=== PATIENT | female | born 1975 | race Caucasian/White ===

== ENCOUNTER 2024-04-07 20:22 | Emergency (ER) | payer MEDICARE, MEDICAID, SELFPAY ==
[2024-04-07 20:32] VITALS: BP 143/54; PULSE 68; RESP 18; TEMP 36.3; O2SAT 100; BMI 51.8
[2024-04-08 00:10] VITALS: BP 122/89; PULSE 63; RESP 18; TEMP 36.8; O2SAT 100
--- NOTE | 2024-04-08 00:30 | ED.BACK ---
HPI - Back Pain/Injury General Chief Complaint: Back Pain/Injury Stated Complaint: back pain, no injury Time Seen by Provider: 04/07/24 22:56 Source: patient and family Limitations: no limitations and language barrier History of Present Illness ED Provider: Lilly Colindres PA-C HPI Narrative: 48-year-old female with a history of morbid obesity and chronic pain who attends pain management, presents with back pain x1 week. Pain across entire lower back, is nonradiating to either extremity. Denies paresthesia, weakness of lower extremities, urinary retention or bowel incontinence. Patient was not performed new exercise, heavy lifting or other activity. There has been no trauma. Related Data Previous Rx's ?Medication ?Instructions ?Recorded methylprednisolone 4 mg tablets in 4 mg PO DAILY #1 ea 04/08/24 a dose pack (Medrol (Tank)) Allergies Allergy/AdvReac Type Severity Reaction Status Date / Time morphine Allergy Unknown Anaphylaxis Verified 04/07/24 20:36 Review of Systems Review of Systems: Yes all other systems are reviewed and are negative Constitutional: Constitutional: Denies fatigue and Denies fever(s) Cardiovascular: Cardiovascular: Denies chest pain and Denies dyspnea Respiratory: Respiratory: Denies cough and Denies dyspnea Gastrointestinal: Gastrointestinal: Denies abdominal pain Musculoskeletal: Musculoskeletal: Reports back pain, Denies muscle weakness, Denies numbness, Denies radiating pain into limb and Denies tingling Neurologic: Denies numbness and Denies tingling Endocrine: Endocrine: Denies fatigue [facility] Past Medical History Attestation statement: The following information was validated with the patient. Social History Social History Alcohol intake: never Smoked in Last 30 Days: Yes Use of substances other than those prescribed or required for medical reasons: No Advance Directives: No Advance Directives Information Provided: Yes Patient : No Physical Exam Vital Signs: Vital Signs: Last Vital Signs Temp 98.2 F 04/08/24 00:10 Pulse 63 04/08/24 00:10 Resp 18 04/08/24 00:10 BP 122/89 04/08/24 00:10 Pulse Ox 100 04/08/24 00:10 O2 Del Method Room Air 04/08/24 00:10 BMI result Body Mass Index 51.8 Const: Other: Awake, appears older than stated age Orientation/consciousness: patient oriented x3 Resp: Effort & Inspection: normal respiratory effort Cardio: Other: Normal peripheral perfusion Back/Spine/Pelvis: Other: No midline tenderness with palpation of the back Skin: Other: Warm dry no rash Neuro: General: patient oriented x3, gait normal, no focal motor deficits and CN's II-XI intact bilaterally Psych: Other: Hostile Medical Decision Making Medical Decision Making MDM Narrative: 48-year-old female with a history of morbid obesity and chronic pain who attends pain management, presents with back pain x1 week. Pain across entire lower back, is nonradiating to either extremity. Denies paresthesia, weakness of lower extremities, urinary retention or bowel incontinence. Patient was not performed new exercise, heavy lifting or other activity. There has been no trauma. Problem: Chronic pain morbid obesity History: Per patient and her spouse I have considered the following differential diagnoses: Fracture, musculoskeletal strain, chronic pain, radiculopathy, cauda equina Plan: Patient here with her chronic pain, she has no radicular symptoms, there has been no trauma or overuse injury that would necessitate imaging, she has no red flag signs symptoms concerning for cord compression. I reviewed [place] PDMP, she has numerous prescriptions for controlled substances by multiple providers, she just filled a prescription for a narcotic the end of February, 90 pills were dispensed. I have explained to the patient that given she sees pain management, that she has multiple prescriptions for controlled substances, that I would not be able to prescribe additional medications within that class. I will start her on a steroid taper, and I have relayed to her that she needs to follow up with her care providers who manage her chronic pain. Discharge Plan Discharge Clinical Impression: Chronic back pain Patient Disposition: Home, Self-Care Instructions: Chronic Back Pain (DC), Lower Back Exercises (ED) Additional Instructions: You need to continue to follow up with pain management who manages your chronic pain. Use the Medrol Dosepak as directed. Weight loss and daily exercise are instrumental in controlling and alleviating chronic back pain. Follow up with your primary care provider as needed. Prescriptions: New methylprednisolone [Medrol (Tank)] 4 mg tablets,dose pack 4 mg PO DAILY Qty: 1 0RF Print Language: Nepali
[2024-04-08 00:45] VITALS: BP 122/89; PULSE 63; RESP 18; TEMP 36.8; O2SAT 100
[2024-04-08] MEDS: methylPREDNISolone 4 MG TABLET 8 MG PO (01:23)
== END 2024-04-08 01:26 | disposition home or self-care (01) ==
PROVIDERS: Emergency Provider Emergency Medicine
DX: M54.50 Low back pain, unspecified (principal)
CPT/HCPCS: 99283; 99284